=== PATIENT | male | born 1955 | race Caucasian/White ===

== ENCOUNTER → 2022-08-19 | Outpatient (CLI) | payer OTHER | END | disposition home or self-care (01) | LOC: US 00:20 | PROVIDERS: ATTEND Internal Medicine | DX: Z13.6 Encounter for screening for cardiovascular disorders (principal); F17.210 Nicotine dependence, cigarettes, uncomplicated ==

== ENCOUNTER → 2023-02-08 | Outpatient (CLI) | payer OTHER | END | disposition home or self-care (01) | LOC: CT 01-24 11:00 | PROVIDERS: ATTEND Internal Medicine | DX: Z12.2 Encounter for screening for malignant neoplasm of respiratory organs (principal); F17.210 Nicotine dependence, cigarettes, uncomplicated; I51.7 Cardiomegaly; R91.1 Solitary pulmonary nodule ==

== ENCOUNTER → 2024-01-29 | Day surgery (SDC) | payer OTHER ==
[~2024-01-29] VITALS: Ht 167.6 cm; Wt 119.7 kg
[~2024-01-29] MED LIST: CONTRAVE ER 8-1 EACH PO; Lactated Ringer's Solution 1,000 ML IV ONE; METFORMIN HYDR500 MG PO; PROPOFOL 200 MG/20 ML VIAL IV ONE; ZESTRIL40 MG PO
[2024-01-29 09:30] VITALS: BP 171/89
[2024-01-29 10:20] VITALS: BP 109/42
[2024-01-29 10:35] VITALS: BP 159/73
[2024-01-29 10:49] VITALS: BP 143/76
== END | disposition home or self-care (01) ==
LOC: SDC 01-25 10:15
PROVIDERS: ATTEND Surgery
DX: Z12.11 Encounter for screening for malignant neoplasm of colon (principal); K63.5 Polyp of colon; K64.8 Other hemorrhoids; I10 Essential (primary) hypertension; E11.9 Type 2 diabetes mellitus without complications; F10.90 Alcohol use, unspecified, uncomplicated; F12.90 Cannabis use, unspecified, uncomplicated; Z98.41 Cataract extraction status, right eye; Z98.42 Cataract extraction status, left eye; Z98.890 Other specified postprocedural states; Z79.84 Long term (current) use of oral hypoglycemic drugs; Z79.899 Other long term (current) drug therapy

== ENCOUNTER → 2024-02-06 | Outpatient (CLI) | payer OTHER ==
[~2024-02-06] MED LIST changes: -Lactated Ringer's Solution 1,000 ML IV ONE; -PROPOFOL 200 MG/20 ML VIAL IV ONE
== END | disposition home or self-care (01) ==
LOC: CT 09:00
PROVIDERS: ATTEND Internal Medicine
DX: Z12.2 Encounter for screening for malignant neoplasm of respiratory organs (principal); J43.9 Emphysema, unspecified; J98.11 Atelectasis; R91.8 Other nonspecific abnormal finding of lung field; I51.7 Cardiomegaly; F17.210 Nicotine dependence, cigarettes, uncomplicated